=== PATIENT | male | born 1965 | race Caucasian/White ===

== ENCOUNTER 2018-08-08 13:40 | Inpatient (IN) | payer OTHER ==
[2018-08-08] MEDS: ONDANSETRON 4 MG INJ IV (15:10)
[2018-08-08] MEDS: morphine 4 MG/ML VIAL IV (15:10)
[2018-08-08] MEDS: KETOROLAC 15 MG INJ IV (15:11)
[2018-08-08] MEDS: SOD CHLORIDE 0.9% 1,000 ML IV ×3 (15:11→21:40)
[2018-08-08 15:18] LABS: ADD MAN DIFF? NO
[2018-08-08 15:21] LABS: WHITE BLOOD COUNT 8.2 10^3/ul (4.8-10.8)
[2018-08-08 15:21] LABS: ABNORMAL IP MESSAGE 1; BASOPHILS % 0.2 % (0.0-2.0); EOSINOPHILS # 0.1 10^3/ul (0.0-0.5); EOSINOPHILS % 1.1 % (0.0-7.0); HEMATOCRIT 43.9 % (42.0-52.0); LYMPHOCYTES # 1.5 10^3/ul (0.8-2.9); LYMPHOCYTES % 18.9 % (15.0-51.0); MEAN CORPUSCULAR HEMOGLOBIN 30.7 pg (29.0-33.0); MEAN CORPUSCULAR HGB CONC 34.2 g/dl (32.0-37.0); MEAN CORPUSCULAR VOLUME 89.8 fl (82.0-101.0); MEAN PLATELET VOLUME 11.3 fl (7.4-10.4); MONOCYTE # 0.8 10^3/ul (0.3-0.9); MONOCYTES % 9.9 % (0.0-11.0); NEUTROPHIL # 5.7 10^3/ul (1.6-7.5); NEUTROPHILS % 69.7 % (39.0-77.0); PLATELET COUNT 65 10^3/UL (140-415); POSITIVE DIFF @See below; RED BLOOD COUNT 4.89 10^6/ul (4.70-6.10); RED CELL DISTRIBUTION WIDTH 13.6 % (11.5-14.5)
[2018-08-08 15:26] LABS: ADD UMIC NO; UR ASCORBIC ACID NEGATIVE (NEGATIVE); UR BILIRUBIN (Dip) NEGATIVE (NEGATIVE); UR BLOOD (Dip) NEGATIVE (NEGATIVE); UR CLARITY CLEAR (CLEAR); UR COLOR YELLOW (YELLOW); UR GLUCOSE (Dip) NEGATIVE (NEGATIVE); UR KETONES (Dip) NEGATIVE (NEGATIVE); UR LEUKOCYTE ESTERASE (Dip) NEGATIVE Leu/ul (NEGATIVE); UR NITRITE (Dip) NEGATIVE (NEGATIVE); UR TOTAL PROTEIN (Dip) NEGATIVE (NEGATIVE); UR UROBILINOGEN (Dip) 2+ mg/dL (NEGATIVE)
[2018-08-08 15:59] LABS: ALANINE AMINOTRANSFERASE 35 IU/L (13-69); ALBUMIN 4.1 g/dl (3.3-4.9); ALBUMIN/GLOBULIN RATIO 1.02; ALKALINE PHOSPHATASE 134 IU/L (42-121); ANION GAP 15 (8-16); ASPARTATE AMINO TRANSFERASE 36 IU/L (15-46); BILIRUBIN,INDIRECT 1.4 mg/dl (0-1.1); BILIRUBIN,TOTAL 1.4 mg/dl (0.2-1.3); BLOOD UREA NITROGEN 14 mg/dl (7-20); CALCIUM 9.3 mg/dl (8.4-10.2); CARBON DIOXIDE 25 mmol/L (21-31); CHLORIDE 107 mmol/L (97-110); CREATININE 0.63 mg/dl (0.61-1.24); GLUCOSE 95 mg/dl (70-220); LIPASE 110 U/L (23-300); POTASSIUM 3.9 mmol/L (3.5-5.1); SODIUM 143 mmol/L (135-144); TOTAL PROTEIN 8.1 g/dl (6.1-8.1)
[2018-08-08] MEDS: SOD CHLORIDE 0.9% 100 ML (16:49)
[2018-08-08] MEDS: IOHEXOL 300MG/ML 150 ML BTL (16:50)
[2018-08-08 17:31] LABS: PARTIAL THROMBOPLASTIN TIME 35.1 Sec (25.0-35.0)
[2018-08-08] MEDS: PIPER-TAZO 3.375 GM IV (PMX) 100 ML IVPB (17:58)
[2018-08-08 18:05] LABS: INR 1.06; PROTIME 13.9 Sec (11.9-14.9); PT RATIO 1.1
[2018-08-08] MEDS ORDERED: HYDROCODONE/APAP (5/325) TAB PO (19:00)
[2018-08-08] MEDS ORDERED: hydrALAzine 20 MG INJ IV (19:00)
[2018-08-08] MEDS ORDERED: NACL 0.9% 3 ML SYG IV (19:00)
[2018-08-08] MEDS ORDERED: ACETAMINOPHEN 325 MG TAB PO ×2 (19:00→19:30)
[2018-08-08] MEDS ORDERED: LORAZEPAM 2 MG INJ IV (19:00)
[2018-08-08] MEDS ORDERED: MAGNESIUM HYDROXIDE 30ML CUP PO (19:00)
[2018-08-08] MEDS ORDERED: NA PHOSPHATE/BIPHOS 133 ML ENEMA PR (19:00)
[2018-08-08] MEDS ORDERED: NITROGLYCERIN (SL) 0.4 MG TAB SL (19:00)
[2018-08-08] MEDS ORDERED: DOCUSATE SODIUM 100 MG CAP PO (19:00)
[2018-08-08] MEDS ORDERED: ONDANSETRON 4 MG INJ IV ×2 (19:00→19:30)
[2018-08-08] MEDS ORDERED: ALBUTEROL/IPRATROPIUM (NEB) 3 ML AMP HHN (19:00)
[2018-08-08 20:01] LABS: FREE T4 (FREE THYROXINE) 1.27 ng/dl (0.64-1.79)
[2018-08-08] MEDS ORDERED: HEPARIN 5,000 UNIT/0.5 ML VIAL SC (21:00)
[2018-08-08] MEDS: morphine 2 MG INJ IV (21:47)
[2018-08-09] MEDS: SOD CHLORIDE 0.9% 1,000 ML IV (05:00)
[2018-08-09] MEDS: PANTOPRAZOLE (EC) 40 MG TAB PO (06:05)
[2018-08-09] MEDS: morphine 2 MG INJ IV (06:07)
[2018-08-09 07:05] LABS: ADD MAN DIFF? NO
[2018-08-09 07:10] LABS: WHITE BLOOD COUNT 6.9 10^3/ul (4.8-10.8)
[2018-08-09 07:10] LABS: ABNORMAL IP MESSAGE 1; BASOPHILS % 0.3 % (0.0-2.0); EOSINOPHILS # 0.1 10^3/ul (0.0-0.5); EOSINOPHILS % 1.6 % (0.0-7.0); HEMATOCRIT 38.8 % (42.0-52.0); HEMOGLOBIN 13.3 g/dl (14.0-18.0); LYMPHOCYTES # 0.8 10^3/ul (0.8-2.9); LYMPHOCYTES % 11.1 % (15.0-51.0); MEAN CORPUSCULAR HEMOGLOBIN 30.8 pg (29.0-33.0); MEAN CORPUSCULAR HGB CONC 34.3 g/dl (32.0-37.0); MEAN CORPUSCULAR VOLUME 89.8 fl (82.0-101.0); MEAN PLATELET VOLUME 12.2 fl (7.4-10.4); MONOCYTE # 0.6 10^3/ul (0.3-0.9); NEUTROPHIL # 5.3 10^3/ul (1.6-7.5); NEUTROPHILS % 77.7 % (39.0-77.0); PLATELET COUNT 53 10^3/UL (140-415); POSITIVE DIFF @See below; RED BLOOD COUNT 4.32 10^6/ul (4.70-6.10); RED CELL DISTRIBUTION WIDTH 13.8 % (11.5-14.5)
[2018-08-09] MEDS ORDERED: PIPER-TAZO 3.375 GM IV (PMX) 100 ML (07:25)
[2018-08-09 07:32] LABS: HEMOGLOBIN A1C 4.9 % (0-5.9)
[2018-08-09] MEDS ORDERED: ROPIVACAINE 0.5 % 30 ML VIAL (07:37)
[2018-08-09] MEDS ORDERED: DEXAMETHASONE 4 MG/ML 1 ML INJ (07:49)
[2018-08-09] MEDS ORDERED: ONDANSETRON 4 MG INJ (07:49)
[2018-08-09 07:51] LABS: ANION GAP 10 (8-16); BLOOD UREA NITROGEN 15 mg/dl (7-20); CALCIUM 8.3 mg/dl (8.4-10.2); CARBON DIOXIDE 24 mmol/L (21-31); CHLORIDE 113 mmol/L (97-110); GLUCOSE 73 mg/dl (70-220); MAGNESIUM 1.7 mg/dl (1.7-2.5); PHOSPHORUS 2.7 mg/dl (2.5-4.9); POTASSIUM 3.7 mmol/L (3.5-5.1); SODIUM 143 mmol/L (135-144)
[2018-08-09] MEDS: BUPIVACAINE 0.25% (MPF) 30 ML INJ (07:54)
[2018-08-09] MEDS: LIDOCAINE 1%/EPI 30 ML INJ (07:57)
[2018-08-09 07:59] LABS: CHOLESTEROL 122 mg/dl (100-200)
[2018-08-09 07:59] LABS: CHOL/HDL RATIO 2.6 RATIO; HDL CHOLESTEROL 46 mg/dl (28-71); LDL CHOLESTEROL,CALCULATED 63 mg/dl; TRIGLYCERIDES 67 mg/dl (0-149)
[2018-08-09] MEDS: D5W-0.45 NACL + KCL 20 MEQ 1,000 ML IV ×3 (08:04→21:56)
[2018-08-09] MEDS ORDERED: LIDOCAINE 2% (SDV) 5 ML INJ (08:07)
[2018-08-09] MEDS ORDERED: ROCURONIUM 50 MG INJ (08:07)
[2018-08-09] MEDS ORDERED: SUGAMMADEX SODIUM 200 MG/2 ML VIAL IV (08:07)
[2018-08-09] MEDS ORDERED: PROPOFOL 20 ML (08:07)
[2018-08-09] MEDS ORDERED: HYDROmorphONE 1 MG/5 ML IV SYRINGE IV ×2 (08:30)
[2018-08-09] MEDS ORDERED: ONDANSETRON 4 MG INJ IV (08:30)
[2018-08-09] MEDS ORDERED: IBUPROFEN 600 MG TAB PO (08:30)
[2018-08-09] MEDS ORDERED: morphine 4 MG/ML VIAL IV (08:30)
[2018-08-09] MEDS: PROPRANOLOL 10 MG TAB PO ×2 (09:00→21:57)
[2018-08-09] MEDS: PIPER-TAZO 3.375 GM IV (PMX) 100 ML IVPB ×2 (13:09→18:21)
[2018-08-09] MEDS ORDERED: morphine LIQ (10 MG/5 ML) CUP PO (17:00)
[2018-08-09 20:24] LABS: WHITE BLOOD COUNT 9.9 10^3/ul (4.8-10.8)
[2018-08-09 20:24] LABS: ABNORMAL IP MESSAGE 1; HEMATOCRIT 37.5 % (42.0-52.0); HEMOGLOBIN 12.9 g/dl (14.0-18.0); MEAN CORPUSCULAR HEMOGLOBIN 30.6 pg (29.0-33.0); MEAN CORPUSCULAR HGB CONC 34.4 g/dl (32.0-37.0); MEAN CORPUSCULAR VOLUME 88.9 fl (82.0-101.0); MEAN PLATELET VOLUME 11.7 fl (7.4-10.4); PLATELET COUNT 55 10^3/UL (140-415); POSITIVE DIFF @See below; RED BLOOD COUNT 4.22 10^6/ul (4.70-6.10); RED CELL DISTRIBUTION WIDTH 13.1 % (11.5-14.5)
[2018-08-09 20:32] LABS: ADD MAN DIFF? YES
[2018-08-09 20:43] LABS: INR 1.18; PROTIME 15.2 Sec (11.9-14.9); PT RATIO 1.2
[2018-08-09] MEDS: HYDROCODONE/APAP (5/325) TAB PO (21:57)
[2018-08-09 22:19] LABS: ANISOCYTOSIS 2+ (0-0); MICROCYTOSIS 1+ (0-0); PLATELET ESTIMATE DECREASED; POLYCHROMASIA 3+ (0-0)
[2018-08-10] MEDS: PIPER-TAZO 3.375 GM IV (PMX) 100 ML IVPB ×2 (00:05→05:43)
[2018-08-10 05:11] LABS: ADD MAN DIFF? NO
[2018-08-10 05:18] LABS: WHITE BLOOD COUNT 10.5 10^3/ul (4.8-10.8)
[2018-08-10 05:18] LABS: ABNORMAL IP MESSAGE 1; BASOPHILS % 0.1 % (0.0-2.0); EOSINOPHILS % 0.2 % (0.0-7.0); HEMATOCRIT 35.5 % (42.0-52.0); LYMPHOCYTES % 9.6 % (15.0-51.0); MEAN CORPUSCULAR HEMOGLOBIN 30.2 pg (29.0-33.0); MEAN CORPUSCULAR HGB CONC 33.8 g/dl (32.0-37.0); MEAN CORPUSCULAR VOLUME 89.2 fl (82.0-101.0); MEAN PLATELET VOLUME 11.5 fl (7.4-10.4); MONOCYTE # 0.9 10^3/ul (0.3-0.9); NEUTROPHIL # 8.4 10^3/ul (1.6-7.5); NEUTROPHILS % 80.6 % (39.0-77.0); PLATELET COUNT 59 10^3/UL (140-415); POSITIVE DIFF @See below; RED BLOOD COUNT 3.98 10^6/ul (4.70-6.10); RED CELL DISTRIBUTION WIDTH 13.2 % (11.5-14.5)
[2018-08-10 05:38] LABS: ANION GAP 7 (8-16); BLOOD UREA NITROGEN 10 mg/dl (7-20); CALCIUM 8.1 mg/dl (8.4-10.2); CARBON DIOXIDE 26 mmol/L (21-31); CHLORIDE 111 mmol/L (97-110); CREATININE 0.57 mg/dl (0.61-1.24); GLUCOSE 121 mg/dl (70-220); POTASSIUM 3.9 mmol/L (3.5-5.1); SODIUM 140 mmol/L (135-144)
[2018-08-10] MEDS: PANTOPRAZOLE 40 MG INJ IV (05:43)
[2018-08-10] MEDS ORDERED: ENOXAPARIN 40 MG/0.4 ML SYG SC (07:00)
[2018-08-10 07:12] LABS: HEPATITIS B SURFACE ANTIGEN NEGATIVE (NEGATIVE)
[2018-08-10 07:29] LABS: HEPATITIS C VIRAL ANTIBODY NEGATIVE (NEGATIVE)
[2018-08-10 07:30] LABS: HEPATITIS B SURFACE ANTIBODY NEGATIVE (NEGATIVE)
[2018-08-10] MEDS: PROPRANOLOL 10 MG TAB PO (09:48)
[2018-08-10] MEDS: HYDROCODONE/APAP (5/325) TAB PO (09:48)
== END 2018-08-10 10:52 | disposition home or self-care (01) | DRG 343 ==
LOC: E/R 13:40 → MS1 19:22
PROC: 0DTJ4ZZ Resection of Appendix, Percutaneous Endoscopic Approach (ICD-10-PCS; principal; 2018-08-09 07:24)
DX: K35.80 Unspecified acute appendicitis (principal); D69.59 Other secondary thrombocytopenia; K74.60 Unspecified cirrhosis of liver
CPT/HCPCS: 36415; 71045; 74177; 76705; 80048; 80053; 80061; 81003; 83036; 83690; 83735; 84100; 84439; 84443; 85025; 85610; 85730; 86706; 86803; 86850; 86900; 86901; 87340; 93005; 96374; 96375; 99285-25